=== PATIENT | male | born 1975 | race Caucasian/White ===

== ENCOUNTER 2023-07-21 18:40 | Emergency (ER) | payer OTHER, BC, SELFPAY ==
[2023-07-21 18:52] VITALS: BP 179/102; PULSE 98; RESP 18; TEMP 36.7; O2SAT 97; BMI 30.8
--- NOTE | 2023-07-21 19:00 | ED.WOUNDLAC1 ---
HPI - Wound/Laceration General Chief Complaint: Wound/Laceration Stated Complaint: BWC- LIFTING A TRUCK, CUT THRU GLOVE-L HAND PINKIE Time Seen by Provider: 07/21/23 18:49 Source: patient Mode of arrival: walk-in Limitations: no limitations History of Present Illness HPI narrative: 47-year-old male presents with a laceration to his left pinky finger after left in a truck pinched his finger at work. Last tetanus 5 to 10 years ago. Denies swelling, temp or sensation changes Related Data Home Medications Medication Instructions Recorded Confirmed gabapentin 300 mg capsule 600 mg PO Q12H 07/21/23 07/21/23 Previous Rx's Medication Instructions Recorded sulfamethoxazole 800 1 tab PO Q12H 10 days #20 tabs 07/21/23 mg-trimethoprim 160 mg tablet (Bactrim DS) tramadol 50 mg tablet 50 mg PO TID PRN pain 3 days #10 07/22/23 tabs Allergies Allergy/AdvReac Type Severity Reaction Status Date / Time No Known Drug Allergies Allergy Verified 07/21/23 20:13 Review of Systems ROS Status of ROS 10 or more systems reviewed and unremarkable except as noted in history and below PFSH PFSH Social History Smoking status: Never smoker Exam Narrative Exam Narrative: General: A&Ox3, no distress, talking in full an complete sentences skin: warm, dry, intact, 1.5 cm laceration to the mid to lateral tip of the left fifth finger, no foreign body head: normocephalic, atraumatic eyes: EOMI nose: nares patent neck: supple, trachea midline respiratory: non-labored extremities: FROM x 4, strength +5/5 neuro: A&Ox3 psych: appropriate mood and affect, cooperative Constitutional Vital Signs, click to edit/add: Last Vital Signs Temp 98.0 F 07/21/23 18:52 Pulse 98 H 07/21/23 18:52 Resp 18 07/21/23 18:52 BP 179/102 H 07/21/23 18:52 Pulse Ox 97 07/21/23 18:52 O2 Del Method Room Air 07/21/23 18:52 Course Vital Signs Vital signs: Vital Signs Temperature 98.0 F 07/21/23 18:52 Pulse Rate 98 H 07/21/23 18:52 Respiratory Rate 18 07/21/23 18:52 Blood Pressure 179/102 H 07/21/23 18:52 Pulse Oximetry 97 07/21/23 18:52 Oxygen Delivery Method Room Air 07/21/23 18:52 Temperature 98.0 F 07/21/23 18:52 Pulse Rate 98 H 07/21/23 18:52 Respiratory Rate 18 07/21/23 18:52 Blood Pressure 179/102 H 07/21/23 18:52 Pulse Oximetry 97 07/21/23 18:52 Oxygen Delivery Method Room Air 07/21/23 18:52 MDM - Wound/Laceration MDM Narrative Medical decision making narrative: Sutures placed and out in 10 days. Bacitracin applied and wound care discussed. Follow-up with occupational health. afebrile, not tachypneic, not tachycardic, not hypoxic, non toxic appearing and ambulating at baseline and hemodynamically stable to be d/c. answered all questions. pt in agreement with tx. educated when to return to ER. Discharge Plan Discharge Chief Complaint: Wound/Laceration Clinical Impression: Laceration of finger of left hand Patient Disposition: Home, Self-Care Time of Disposition Decision: 19:23 Condition: Good Mode of Transportation: Private Vehicle Prescriptions / Home Meds: No Action gabapentin 300 mg capsule 600 mg PO Q12H sulfamethoxazole-trimethoprim [Bactrim DS] 800-160 mg tablet 1 tab PO Q12H 10 Days Qty: 20 0RF tramadol 50 mg tablet 50 mg PO TID PRN (Reason: pain) 3 Days Qty: 10 0RF Instructions: Laceration (ED) Additional Instructions: sutures out in 10 days keep covered and change bandage 2-3 times a day use bacitracin do not submerge in water follow up with occupational health Stand Alone Forms: Portal Instructions Referrals: Physician,Non-Staff, MD [Primary Care Provider] - 1 week Discharge Date/Time: 07/21/23 20:00
[2023-07-21] MEDS: BACITRACIN 0.9 GM PACKET 1 PACKET TOPICAL (19:57)
== END 2023-07-21 20:00 | disposition home or self-care (01) ==
PROVIDERS: Emergency Provider Student in an Organized Health Care Education/Training Program
DX: S61.217A Laceration without foreign body of left little finger without damage to nail, initial encounter (principal); W22.8XXA Striking against or struck by other objects, initial encounter
CPT/HCPCS: 12001; 99284

== ENCOUNTER 2023-07-21 20:08 | Emergency (ER) | payer BC, SELFPAY ==
--- NOTE | 2023-07-21 20:09 | ED_ITS ---
HPI - Skin/Abscess/Foreign Bdy General Chief complaint: Wound/Laceration Stated complaint: Upper extremity pain Time Seen by Provider: 07/21/23 20:09 Source: patient Mode of arrival: walk-in Limitations: no limitations History of Present Illness HPI narrative: 47-year-old male presents with left thumb redness and tenderness and concern for infection. He states that he was working with [employer] at home and a piece punctured his left thumb 4 days ago. He states that pus has been expressed out of his thumb. Patient is here for a laceration to his left fifth finger as a Worker's Comp. and is now registered under his own insurance for the left thumb. Denies swelling, temp or sensation changes Related Data Home Medications Medication Instructions Recorded Confirmed gabapentin 300 mg capsule 600 mg PO Q12H 07/21/23 07/21/23 Previous Rx's Medication Instructions Recorded sulfamethoxazole 800 1 tab PO Q12H 10 days #20 tabs 07/21/23 mg-trimethoprim 160 mg tablet (Bactrim DS) Allergies Allergy/AdvReac Type Severity Reaction Status Date / Time No Known Drug Allergies Allergy Verified 07/21/23 20:13 Review of Systems ROS Status of ROS 10 or more systems reviewed and unremarkable except as noted in history and below PFSH PFSH Social History Smoking status: Former smoker Exam Narrative Exam Narrative: General: A&Ox3, no distress, talking in full an complete sentences skin: warm, dry, intact, erythema to the tip of the left thumb with a previous scabbed over puncture wound, no induration or fluctuance, no streaking, no swelling head: normocephalic, atraumatic eyes: EOMI nose: nares patent neck: supple, trachea midline respiratory: non-labored extremities: FROM x 4, strength +5/5 neuro: A&Ox3 psych: appropriate mood and affect, cooperative Constitutional Vital Signs, click to edit/add: Last Vital Signs Temp 98.0 F 07/21/23 20:10 Pulse 82 07/21/23 20:10 Resp 16 07/21/23 20:10 BP 154/99 H 07/21/23 20:10 Pulse Ox 97 07/21/23 20:10 O2 Del Method Room Air 07/21/23 20:10 Course Vital Signs Vital signs: Vital Signs Temperature 98.0 F 07/21/23 20:10 Pulse Rate 82 07/21/23 20:10 Respiratory Rate 16 07/21/23 20:10 Blood Pressure 154/99 H 07/21/23 20:10 Pulse Oximetry 97 07/21/23 20:10 Oxygen Delivery Method Room Air 07/21/23 20:10 Temperature 98.0 F 07/21/23 20:10 Pulse Rate 82 07/21/23 20:10 Respiratory Rate 16 07/21/23 20:10 Blood Pressure 154/99 H 07/21/23 20:10 Pulse Oximetry 97 07/21/23 20:10 Oxygen Delivery Method Room Air 07/21/23 20:10 MDM - Skin/Abscess/Foreign Bdy MDM Narrative Medical decision making narrative: Patient will be treated for a cellulitis with a dose of Bactrim here and given a prescription and follow-up family doctor. afebrile, not tachypneic, not tachycardic, not hypoxic, non toxic appearing and ambulating at baseline and hemodynamically stable to be d/c. answered all questions. educated on SE of meds. pt in agreement with tx. educated when to return to ER. Discharge Plan Discharge Chief Complaint: Wound/Laceration Clinical Impression: Cellulitis of left thumb Patient Disposition: Home, Self-Care Time of Disposition Decision: 20:10 Condition: Good Mode of Transportation: Private Vehicle Prescriptions / Home Meds: New sulfamethoxazole-trimethoprim [Bactrim DS] 800-160 mg tablet 1 tab PO Q12H 10 Days Qty: 20 0RF No Action gabapentin 300 mg capsule 600 mg PO Q12H Instructions: Cellulitis (ED) Stand Alone Forms: Portal Instructions Referrals: Physician,Non-Staff, MD [Primary Care Provider] - 1 week
[2023-07-21 20:10] VITALS: BP 154/99; PULSE 82; RESP 16; TEMP 36.7; O2SAT 97; BMI 30.7
--- NOTE | 2023-07-21 20:15 | PC.NURSE ---
patient states a few days ago he punctured left thumb with a nail. area now red, swollen, and has two areas of pus drainage. UTD tetanus.
[2023-07-21] MEDS: SULFAMETHOXAZOLE/TRIMETHOPRIM 800-160 MG TABLET 1 TAB PO (20:26)
== END 2023-07-21 20:32 | disposition home or self-care (01) ==
PROVIDERS: Emergency Provider Internal Medicine
DX: L03.012 Cellulitis of left finger (principal); Z87.891 Personal history of nicotine dependence; Z79.899 Other long term (current) drug therapy
CPT/HCPCS: 99283

== ENCOUNTER 2023-07-22 08:41 | Emergency (ER) | payer BC, SELFPAY ==
[2023-07-22 08:51] VITALS: BP 154/109; PULSE 91; RESP 16; TEMP 36.8; O2SAT 98; BMI 30.8
--- NOTE | 2023-07-22 08:53 | ED.UPPEXIN1 ---
HPI - Extremity Injury (Upper) General Chief Complaint: Extremity Injury, Upper Stated Complaint: UPPER EXTREMITY INJURY LEFT HAND Time Seen by Provider: 07/22/23 08:53 History of Present Illness HPI narrative: Patient presents to emergency department complaining of left hand pain. Patient states That He Was Working at Home and Had a Nail Go through the Ulnar Aspect of His Distal Phalanx of the Thumb. He Did Not Seek Medical Attention at That Time but Yesterday She Noted Increased Swelling and Erythema Consistent with Infection Seen in the Emergency Department Yesterday for It and Was Started on Bactrim. She has taken 1 dose yesterday and took one this morning. Patient was at work yesterday and he sustained an injury to the left pinky. It was a laceration and he was seen here for workman's comp claim. He states did not feel like it was hurting a lot yesterday. He did not have an x-ray done yesterday. He states when he was at home he was not able to sleep all night because of the pain and this morning the pain was radiating from the laceration site to the mid hand. He denies any swelling. He denies any active bleeding. Does not take blood thinners. He states he has ulcerative colitis and has been taking Tylenol is about to take NSAIDs and Tylenol he has taken is not working. He denies any weakness. He denies any fever, chills. He states he is here today mostly because of the pain that is running down from his pinky laceration to his mid hand. Related Data Home Medications Medication Instructions Recorded Confirmed gabapentin 300 mg capsule 600 mg PO Q12H 07/21/23 07/21/23 Previous Rx's Medication Instructions Recorded sulfamethoxazole 800 1 tab PO Q12H 10 days #20 tabs 07/21/23 mg-trimethoprim 160 mg tablet (Bactrim DS) tramadol 50 mg tablet 50 mg PO TID PRN pain 3 days #10 07/22/23 tabs Allergies Allergy/AdvReac Type Severity Reaction Status Date / Time No Known Drug Allergies Allergy Verified 07/21/23 20:13 Review of Systems ROS Status of ROS 10 or more systems reviewed and unremarkable except as noted in history and below PFSH PFSH Social History Smoking status: Never smoker Exam Narrative Exam Narrative: Nurses notes and vital signs reviewed and patient is not hypoxic. General: Nontoxic, Well-appearing and in no apparent distress. Skin: Warm, dry, no pallor noted. No Rash Head: Normocephalic, atraumatic. Neck: Supple Eye: Pupils are equal, round and EOMI. No scleral icterus. Back: No midline thoracic or lumbar vertebral tenderness. No CVA tenderness Musculoskeletal: Left thumb with a distal puncture wound with a small amount of erythema which is infected. Some small pustule to the dorsum of the ulnar side of the phalanx. There is negative connatal signs. There is no sausage digit. Refill is brisk. Nail is not affected. Left pinky has a palmar surface laceration with sutures in place. There is no active bleeding. Range of motion is limited by pain. Tenderness to palpation of the distal phalanx and PIP. Neurological: A&O x4. No cranial nerve dysfunction observed. No truncal ataxia. Moves all extremities. Sensation intact. Psychiatric: Cooperative and interactive. Normal mood and affect. Constitutional Vital Signs, click to edit/add: Last Vital Signs Temp 98.2 F 07/22/23 08:51 Pulse 91 H 07/22/23 08:51 Resp 16 07/22/23 08:51 BP 154/109 H 07/22/23 08:51 Pulse Ox 98 07/22/23 08:51 O2 Del Method Room Air 07/22/23 08:51 Course Vital Signs Vital signs: Vital Signs Temperature 98.2 F 07/22/23 08:51 Pulse Rate 91 H 07/22/23 08:51 Respiratory Rate 16 07/22/23 08:51 Blood Pressure 154/109 H 07/22/23 08:51 Pulse Oximetry 98 07/22/23 08:51 Oxygen Delivery Method Room Air 07/22/23 08:51 Temperature 98.2 F 07/22/23 08:51 Pulse Rate 91 H 07/22/23 08:51 Respiratory Rate 16 07/22/23 08:51 Blood Pressure 154/109 H 07/22/23 08:51 Pulse Oximetry 98 07/22/23 08:51 Oxygen Delivery Method Room Air 07/22/23 08:51 MDM - Extremity Injury (Upper) MDM Narrative Medical decision making narrative: X-ray results discussed with patient. Patient is currently on antibiotics. He was given a prescription for Ultram. Follow-up with occupational health tomorrow and or so as needed. He is advised to do warm soaks to the thumb. He stated that he noticed some pustular drainage. Oaars checked. At this time the patient is without objective evidence of an acute process requiring hospitalization or inpatient management. The patient has remained hemodynamically stable. No additional indication for emergent studies at this time. I answered all questions. Discussed discharge instructions including standard anticipatory guidance and what should prompt a return to the emergency department, including if they get worse are not getting better or develops any new or concerning symptoms. I've given them specific time frame in which to follow-up, and who to follow-up with. The patient demonstrates understanding. Patient is nontoxic and stable for discharge with outpatient follow-up. This note was created with the assistance of a speech recognition program. Although the intention is to generate documents that actually reflects the content of the visit, no guarantees can be provided that every mistake has been identified and corrected by editing. Discharge Plan Discharge Chief Complaint: Extremity Injury, Upper Clinical Impression: Laceration of finger of left hand, Puncture wound of left thumb with complication, Retained foreign body Patient Disposition: Home, Self-Care Time of Disposition Decision: 10:16 Condition: Good Mode of Transportation: Private Vehicle Prescriptions / Home Meds: New tramadol 50 mg tablet 50 mg PO TID PRN (Reason: pain) 3 Days Qty: 10 0RF No Action gabapentin 300 mg capsule 600 mg PO Q12H sulfamethoxazole-trimethoprim [Bactrim DS] 800-160 mg tablet 1 tab PO Q12H 10 Days Qty: 20 0RF Instructions: Puncture Wound (ED), Finger Laceration (ED) Stand Alone Forms: Portal Instructions Referrals: Stuart Robison MD [Physician] - 1 week Occupational Therapy,Template, OT [Occupational Therapist] - 1 week
--- NOTE | 2023-07-22 09:08 | PC.NURSE ---
Patient states injured left thumb approximately a week ago at home with a nail. Patient requesting pain medications for left thumb and left 5th digit.
--- NOTE | 2023-07-22 09:13 | XR_ITS ---
The [address] [address] Patient Name: PA VARGAS MRN: [id number] date: 1975 Sex: M Assigned Patient Location: ER Current Patient Location: ER Accession/Order Number: [id number] Exam Date: 07/22/2023 09:18 Report Date: 07/22/2023 09:51 At the request of: ADDY VAUGHAN Procedure: XR hand LT min 3V EXAM: XR hand LT min 3V HISTORY: pain COMPARISON: None. TECHNIQUE: 3 views of the left hand. FINDINGS: Bones are of normal configuration, joints are normally aligned, without fracture or dislocation. No bony erosions. Degenerative change predominantly involves the first carpal metacarpal, first through third metacarpal phalangeal joints. Punctate 1-2 mm radiodensity projecting over the volar soft tissues of the distal fifth digit at the level of the distal interphalangeal joint is only seen on the lateral view, this could questionably relates to a radiodensity along the dorsal skin surface of the overlying fourth digit; tiny foreign body be difficult to entirely exclude. XR/XR hand LT min 3V IMPRESSION: 1. No acute osseous abnormality. 2. Punctate 1-2 mm radiodensity projecting over the volar soft tissues of the distal fifth digit, only seen on the lateral view, could potentially relate to a punctate focus of debris on the skin of the overlying fourth digit; a tiny foreign body would be difficult to entirely exclude; correlate with findings on physical exam/site of the fifth digit laceration. Electronically authenticated by: PAKO RODRIGUEZ Date: 07/22/2023 09:51
== END 2023-07-22 10:40 | disposition home or self-care (01) ==
PROVIDERS: Emergency Provider Emergency Medicine
DX: S61.042A Puncture wound with foreign body of left thumb without damage to nail, initial encounter (principal); W45.0XXA Nail entering through skin, initial encounter; S61.211D Laceration without foreign body of left index finger without damage to nail, subsequent encounter; K51.90 Ulcerative colitis, unspecified, without complications
CPT/HCPCS: 73130; 99283